=== PATIENT | male | born 1990 | race Caucasian/White ===

== ENCOUNTER 2019-05-23 05:30 | Day surgery (SDC) | payer OTHER ==
--- NOTE | 2019-05-23 07:32 | ED ---
Back Pain - HPI Summary HPI Summary: Pt here w/ Lt sided flank pain since 1am this morning. Wraps around to LLQ. Nausea - no vomiting. Took diazepam and no relief. Pain is constant since starting. Has had flank pain intermittently over past year - saw PCP over the summer and who thought he had a kidney stone - XR was neg - no further w/u. Was given diazepam for suspected MYRON pain. Has had chills. Denies dysuria, hematuria , fever, diarrhea. 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 Pain Intensity: 10 - Allergies/Home Medications Allergies/Adverse Reactions: Allergies Allergy/AdvReac Type Severity Reaction Status Date / Time No Known Allergies Allergy Verified 05/23/19 05:34 Home Medications: Home Medications NK [No Home Medications Reported] 05/23/19 [History Confirmed 05/23/19] PMH/Surg Hx/FS Hx/Imm Hx Previously Healthy: Yes Endocrine/Hematology History: Denies: Hx Anticoagulant Therapy Cardiovascular History: Denies: Hx Aneurysm GI History: Denies: Hx Cirrhosis, Hx Crohn's Disease, Hx Diverticulosis, Hx Gall Bladder Disease, Hx Gastroesophageal Reflux Disease, Hx Hiatal Hernia, Hx Irritable Bowel History: Reports: Other Problems/Disorders - possible kidney stone? Denies: Hx Acute Renal Failure, Hx Chronic Renal Failure, Hx Kidney Infection , Hx Renal Disease - Immunization History Date of Tetanus Vaccine: unk Date of Influenza Vaccine: none Infectious Disease History: No Infectious Disease History: Denies: Traveled Outside the [place] in Last 30 Days - Family History Known Family History: Positive: Other - no fam h/o kidney stones - Social History Alcohol Use: Weekly Hx Substance Use: No Substance Use Type: Reports: None Hx Tobacco Use: No Smoking Status (MU): Never Smoked Tobacco Review of Systems Positive: Chills. Negative: Fever Cardiovascular: Negative Respiratory: Negative Positive: Nausea. Negative: Vomiting, Diarrhea Positive: no symptoms reported Musculoskeletal: Negative Skin: Negative Neurological: Negative Psychological: Normal All Other Systems Reviewed And Are Negative: Yes Physical Exam Triage Information Reviewed: Yes Vital Signs On Initial Exam: Initial Vitals Temp Pulse Resp BP Pulse Ox 98.2 F 78 18 154/100 99 05/23/19 05:32 05/23/19 05:32 05/23/19 05:32 05/23/19 05:32 05/23/19 05:32 Vital Signs Reviewed: Yes Appearance: Positive: Pain Distress - uncomfortable lying on stretcher but is still Skin: Positive: Warm, Skin Color Reflects Adequate Perfusion, Dry Head/Face: Positive: Normal Head/Face Inspection Eyes: Positive: Normal, EOMI ENT: Positive: Hearing grossly normal, Pharynx normal - mucosa moist Respiratory/Lung Sounds: Positive: Clear to Auscultation, Breath Sounds Present Cardiovascular: Positive: Normal, RRR. Negative: Murmur, Rub, Leg Edema Left, Leg Edema Right Abdomen Description: Positive: Soft, CVA Tenderness (L), Other: - LLQ mild TTP - . Negative: CVA Tenderness (R), Guarding, Hepatomegaly, Splenomegaly Bowel Sounds: Positive: Present Male Genital Exam: Positive: Other - deferred Musculoskeletal: Positive: Normal, Strength/ROM Intact Neurological: Positive: Alert, Oriented to Person Place, Time, CN Intact II-III Psychiatric: Positive: Normal - Brandon Coma Scale Best Eye Response: 4 - Spontaneous Best Motor Response: 6 - Obeys Commands Best Verbal Response: 5 - Oriented Coma Scale Total: 15 Procedures - Sedation Patient Received Moderate/Deep Sedation with Procedure: No Diagnostics - Vital Signs Vital Signs Temp Pulse Resp BP Pulse Ox 05/23/19 07:00 58 98 05/23/19 06:00 71 99 05/23/19 05:32 98.2 F 78 18 154/100 99 - Laboratory Result Diagrams: 05/23/19 07:47 05/23/19 07:47 Lab Statement: Any lab studies that have been ordered have been reviewed, and results considered in the medical decision making process. Re-Evaluation - Re-Evaluation First Eval Change: Improved - pain went from 10/10 to 5/10 w/ IV morphine - worse after 3 hrs - will re-order. Nausea controlled Back Pain Course/Dx - Course Course Of Treatment: Patient presents with acute on chronic left flank pain. He reports 10 out of 10 with nausea and chills. CT scan reveals severe hydronephrosis with edema of left kidney. No calculus is identified. Creatinine 1.5no previous for comparison. All other labs are within normal limits. Discussed case with Dr. Sanon who will take patient to the OR today to address his congenital obstruction as his pain is poorly controlled this time. No signs or symptoms of infection at this time. Patient to be given 2 g of Rocephin at 11:30 AM. . He has been nothing by mouth since 2 AM and will remain the same. He'll be given additional morphine prior to discharge from the emergency department and a prescription for outpatient morphine and Zofran as needed. Patient stable at time of transfer of care. - Diagnoses Provider Diagnoses: Congenital obstruction of ureterovesical junction (UVJ) Discharge ED - Sign-Out/Discharge Documenting (check all that apply): Patient Departure - Discharge Plan Condition: Guarded Disposition: ADMITTED TO [facility] - Billing Disposition and Condition Condition: GUARDED Disposition: Admitted to [facility]
[2019-05-23] MEDS ORDERED: Morphine INJ* 4 MG/ML 1 ML SYRINGE (NEW SYRINGE VERSION) IV ONE (07:37)
[2019-05-23] MEDS ORDERED: NS 0.9% 1000 ML** 1,000 ML IV ONE (07:37)
[2019-05-23] MEDS ORDERED: Ondansetron INJ* 2 MG/ML VIAL IV ONE (07:37)
[2019-05-23] MEDS ORDERED: Morphine 4 MG/ML VIAL (1 ml) 4 MG/ML VIAL IV ONE ×2 (07:48→11:09)
[2019-05-23 08:03] LABS: ABS Lymphocytes 0.8 10^3/ul (1.0-4.8); ABS Monocytes 0.6 10^3/ul (0-0.8); ABS Neutrophils 6.4 10^3/ul (1.5-7.7); Eosinophil % 0.5 %; Hematocrit 43 % (42-52); Hemoglobin 14.9 g/dL (14.0-18.0); Lymphocyte % 10.5 %; Mean Corpuscular HGB Conc 35 g/dL (31-36); Mean Corpuscular Hemoglobin 33 pg (27-31); Mean Corpuscular Volume 94 fL (80-94); Mean Platelet Volume 8.3 fL (7.4-10.4); Platelet Count 142 10^3/uL (150-450); Red Blood Count 4.54 10^6 /uL (4.18-5.48); Red Cell Distribution Width 13 % (10-15); White Blood Count 7.8 10^3/uL (3.5-10.8)
[2019-05-23 08:10] LABS: Albumin 4.3 g/dL (3.2-5.2); Albumin/Globulin Ratio 2.2 (1-3); BUN/Creatinine Ratio 11.9 (8-20); Calcium 10.1 mg/dL (8.6-10.3); EGFR African American 66.4 (>60); EGFR Non-African American 54.9 (>60); Total Bilirubin 0.7 mg/dL (0.2-1.0); Total Protein 6.3 g/dL (6.4-8.9)
[2019-05-23 10:59] LABS: Urine Appearance Clear; Urine Bacteria Absent (Absent); Urine Bilirubin Negative (Negative); Urine Blood Negative (Negative); Urine Color Yellow; Urine Glucose Negative (Negative); Urine Ketones Negative (Negative); Urine Nitrite Negative (Negative); Urine Protein Negative (Negative); Urine Red Blood Cell 1+(3-5/hpf) (Absent); Urine Specific Gravity 1.021 (1.010-1.030); Urine Squamous Epithelial Cell Present (Absent); Urine Urobilinogen Negative (Negative); Urine White Blood Cell Trace(0-5/hpf) (Absent)
[2019-05-23] MEDS ORDERED: cefTRIAXone(*) 2 GM in NS 0.9% 100 ML* 100 ML IVPB ONE (11:30)
[2019-05-23] MEDS ORDERED: Iohexol 180 (CONTRAST) 10 ML SDV IV ONE ×2 (12:40→12:48)
[2019-05-23] MEDS ORDERED: fentaNYL* 50 MCG/ML 2 ML VIAL (100 MCG VIAL) ONE (12:59)
[2019-05-23] MEDS ORDERED: Midazolam* 1 MG/ML 2 ML VIAL (2 MG) ONE (12:59)
[2019-05-23] MEDS ORDERED: Glycopyrrolate IV* 0.2 MG/ML 1 ML VIAL ONE (13:18)
[2019-05-23] MEDS ORDERED: Dexamethasone IV* 4 MG/ML 1 ML (4 MG) ONE (13:25)
[2019-05-23] MEDS ORDERED: Ondansetron INJ* 2 MG/ML VIAL ONE (13:25)
[2019-05-23] MEDS ORDERED: Lidocaine 2% PF * 5 ML VIAL ONE (13:25)
[2019-05-23] MEDS ORDERED: Propofol* 10 MG/ML 20 ML BTL ONE (13:25)
[2019-05-23] MEDS ORDERED: HYDROmorphone INJ1* 1 MG/ML SYRINGE IV PRN (13:40)
[2019-05-23] MEDS ORDERED: Naloxone* 0.4 MG/ML 1 ML VIAL IV PRN (13:40)
--- NOTE | 2019-05-23 13:43 | CONS ---
CC: Dr. Chetan Comer * UROLOGY CONSULTATION: DATE OF CONSULT: 05/23/19 REQUESTING PHYSICIAN: JOSÉ LUIS Vanegas, in the emergency department. DIAGNOSES: 1. Left hydronephrosis. 2. 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 HISTORY OF PRESENT ILLNESS: Óscar Blackwell is a 29-year-old gentleman who has had episodic left flank pain for the last 1-1/2 to 2 years. This has been progressively getting worse and he now came into the emergency department because of severe pain, which was not relieved by his usual tactics including heating pad, cooling pad, and analgesics. There is no history of urolithiasis. There is no history of childhood urinary tract infections or pyelonephritis. PAST MEDICAL HISTORY: Unremarkable. PAST SURGICAL HISTORY: Significant for umbilical hernia repair. MEDICATIONS ON ADMISSION: None. ALLERGIES: No known drug allergies. FAMILY HISTORY: Noncontributory (no history of renal disorder). REVIEW OF SYSTEMS: He is otherwise in excellent health. There is no history of diabetes mellitus or any other major systemic illness. PHYSICAL EXAM: Reveals a pleasant, healthy-appearing young gentleman, who is moderately uncomfortable at the time of the evaluation. Blood pressure is 130/ 80, heart rate 63 per minute, temperature 37.1, oxygen saturation 100% on room air. Cardiovascular Exam: Regular rate and rhythm. S1, S2. Lungs are clear bilaterally. Abdomen is soft with moderate left flank tenderness. DIAGNOSTIC STUDIES/LAB DATA: Review of labs reveals a white count of 7.8, hemoglobin and hematocrit are 14.9 and 43 with a platelet count which is mildly reduced at 142. Review of chemistry reveals a sodium of 137, potassium of 4.0, BUN 18, creatinine is elevated at 1.51, glucose is 117 with a lactic acid of 0.7. Urinalysis reveals specific gravity of 1.02 with 1+ rbc's and absent bacteria. I reviewed the CT scan, which reveals severe left hydronephrosis with a markedly dilated left renal pelvis and no evidence of any calculi and no evidence of any dilatation of the proximal or mid ureter. To me, it appears that there is significant cortical thinning, although that has not been commented on by the radiologist and my concern is that he may already have lost significant function of that left kidney. IMPRESSION AND PLAN: I had a detailed discussion with Mr. Blackwell and his specimen collector regarding the findings of severe left hydronephrosis likely secondary to congenital left ureteropelvic junction obstruction. Due to the persistent pain, the plan is to make an attempt for a left stent insertion, although I have explained to him that it may not be possible to get a stent in depending on the degree of obstruction and he may end up with a temporary left nephrostomy tube in that case. I also discussed the long-term solution which would be a pyeloplasty, which he will require, although it may be useful to do some further determinations such as a nuclear scan to try and assess the degree of function of that left kidney prior to making any decisions about long-term treatment. All of their questions were answered. Plan is to proceed with left retrograde and left stent insertion. [id number]/[facility] #: [id number] [place]
[2019-05-23] MEDS ORDERED: Levofloxacin 500 MG IVPREMIX(* 500 MG/100 ML BAG IVPB ONE ×2 (14:29→14:30)
[2019-05-23 16:02] VITALS: BP 134/89
--- NOTE | 2019-05-23 19:02 | OP ---
CC: Dr. Chetan Comer * DATE OF OPERATION: 05/23/19 - [facility] DATE OF : 89 SURGEON: Nolan Sanon MD ANESTHESIOLOGIST: Dr. Vargas. ANESTHESIA: General. PRE-OP DIAGNOSES: 1. Severe left hydronephrosis. 2. Left ureteropelvic junction obstruction. POST-OP DIAGNOSES: 1. Severe left hydronephrosis. 2. Left ureteropelvic junction obstruction. OPERATIVE PROCEDURE: Cystoscopy, left retrograde pyelogram, left stent insertion. COMPLICATIONS: None. STENT USED: A 6-Mohawk stent, left ureter. POSTOPERATIVE CONDITION: Stable. INDICATIONS: Óscar Blackwell is a 29-year-old gentleman with a history of intermittent left flank pain for the last 1 to 2 years, who was evaluated because of increasing severity of pain and noted to have severe left hydronephrosis with an appearance consistent with congenital left ureteropelvic junction obstruction. He is now being brought in for short-term management with left stent insertion and will likely require definitive treatment with pyeloplasty in the near future after full assessment of return of renal function has been done. OPERATIVE FINDINGS: Severe left hydronephrosis secondary to left ureteropelvic junction obstruction (possible crossing vessel). DESCRIPTION OF PROCEDURE: After induction of general anesthesia, the patient was placed in dorsal lithotomy position. Sequential compression devices were in place and functioning. Initial cystoscopy revealed normally located right and left ureteral orifices. There was clear efflux noted from the right orifice. There was minimal to no efflux noted from the left orifice suggesting a near complete obstruction. A guidewire was introduced into the left ureter. Retrograde pyelogram revealed severe left hydronephrosis with a markedly dilated left renal pelvis, and on the retrograde, there was some evidence that there may be a crossing vessel impinging on the ureter causing the ureteropelvic junction obstruction. A 6- Mohawk stent was introduced and positioned under fluoroscopy with good proximal and distal positioning obtained. Urine was seen draining freely from the stent into the bladder at the end of the procedure. The bladder was emptied. The patient tolerated the procedure satisfactorily and was transferred back to the recovery area in stable condition. [id number]/[facility] #: [id number] [facility]
== END 2019-05-23 16:23 | disposition home or self-care (01) ==
LOC: ED 05:30 → OR 12:07
PROVIDERS: ATTEND Urology
DX: N13.0 Hydronephrosis with ureteropelvic junction obstruction (principal); R10.32 Left lower quadrant pain; R11.0 Nausea
CPT/HCPCS: 36415; 74176; 74420; 80053; 81003; 83605; 85025; 87086; 96374; 96375; 99285; C1876; J0696; J1100; J1956; J2250; J2270; J2405; J2704; J3010